=== PATIENT | female | born 1970 | race Caucasian/White ===

== ENCOUNTER 2017-09-07 19:50 | Inpatient (IN) | payer MEDICAID, OTHER ==
[2017-09-07] MEDS: SOD CHLORIDE 0.9% 1,000 ML IV (20:49)
[2017-09-07] MEDS: ONDANSETRON 4 MG INJ IV (20:49)
[2017-09-07] MEDS: morphine 4 MG/ML VIAL IV (20:49)
[2017-09-07 22:48] LABS: WHITE BLOOD COUNT 2.1 10^3/ul (4.8-10.8)
[2017-09-07 22:48] LABS: ABNORMAL IP MESSAGE 1; HEMATOCRIT 32.5 % (37.0-47.0); HEMOGLOBIN 10.3 g/dl (12.0-16.0); MEAN CORPUSCULAR HEMOGLOBIN 25.5 pg (29.0-33.0); MEAN CORPUSCULAR HGB CONC 31.7 g/dl (32.0-37.0); MEAN CORPUSCULAR VOLUME 80.4 fl (82.0-101.0); RED BLOOD COUNT 4.04 10^6/ul (4.20-5.40); RED CELL DISTRIBUTION WIDTH 14.6 % (11.5-14.5)
[2017-09-07 22:52] LABS: PLATELET COUNT 39 10^3/UL (140-415); POSITIVE DIFF @See below
[2017-09-07 22:53] LABS: ADD MAN DIFF? YES
[2017-09-07 23:05] LABS: ALANINE AMINOTRANSFERASE 18 IU/L (13-69); ALBUMIN 3.1 g/dl (3.3-4.9); ALBUMIN/GLOBULIN RATIO 1.24; ALKALINE PHOSPHATASE 62 IU/L (42-121); ANION GAP 11 (8-16); ASPARTATE AMINO TRANSFERASE 13 IU/L (15-46); BILIRUBIN,INDIRECT 0.5 mg/dl (0-1.1); BILIRUBIN,TOTAL 0.5 mg/dl (0.2-1.3); BLOOD UREA NITROGEN 20 mg/dl (7-20); CALCIUM 8.9 mg/dl (8.4-10.2); CARBON DIOXIDE 27 mmol/L (21-31); CHLORIDE 106 mmol/L (97-110); CREATININE 0.76 mg/dl (0.44-1.00); GLUCOSE 112 mg/dl (70-220); POTASSIUM 3.7 mmol/L (3.5-5.1); SODIUM 140 mmol/L (135-144); TOTAL PROTEIN 5.6 g/dl (6.1-8.1)
[2017-09-07 23:16] LABS: ANISOCYTOSIS 3+ (0-0); BAND NEUTROPHILS % (M) 2 % (0-4); GIANT THROMBO% (M) 2 % (0-0); LYMPHOCYTES #M 0.1 10^3/ul (0.8-2.9); LYMPHOCYTES % (M) 7 % (15-51); MICROCYTOSIS 3+ (0-0); MONOCYTE #M 0.2 10^3/ul (0.3-0.9); MONOCYTES % (M) 10 % (0-11); OVALOCYTES 1+ (0-0); PLATELET ESTIMATE SIG DECREASED; POIKILOCYTOSIS 2+ (0-0); SEG NEUT #M 1.7 10^3/ul (1.6-7.5); SEGMENTED NEUTROPHILS (M) % 81 % (39-77); SMUDGE%M 3 % (0-0)
[2017-09-07 23:17] LABS: PATH REVIEW? YES-PATH TO CONFIRM
[2017-09-08] MEDS ORDERED: NACL 0.9% 3 ML SYG IV (00:30)
[2017-09-08] MEDS ORDERED: ACETAMINOPHEN 325 MG TAB PO (00:30)
[2017-09-08] MEDS ORDERED: ONDANSETRON 4 MG INJ IV (00:30)
[2017-09-08] MEDS: metroNIDAZOLE 500 MG/NS (PMX) 100 ML IVPB ×5 (00:30→18:03)
[2017-09-08] MEDS: CIPROFLOXACIN 400MG/D5W 200 ML IVPB ×3 (00:39→23:44)
[2017-09-08] MEDS: SOD CHLORIDE 0.9% 1,000 ML IV ×3 (01:01→20:20)
[2017-09-08 01:41] LABS: LACTIC ACID 0.9 mmol/L (0.5-2.0)
[2017-09-08 05:16] LABS: HAAIG REFLEX REFLEX FILED
[2017-09-08 05:18] LABS: WHITE BLOOD COUNT 1.2 10^3/ul (4.8-10.8)
[2017-09-08 05:18] LABS: ABNORMAL IP MESSAGE 1; ADD MAN DIFF? YES; HEMATOCRIT 30.6 % (37.0-47.0); HEMOGLOBIN 9.5 g/dl (12.0-16.0); MEAN CORPUSCULAR HEMOGLOBIN 25.6 pg (29.0-33.0); MEAN CORPUSCULAR VOLUME 82.5 fl (82.0-101.0); PLATELET COUNT 38 10^3/UL (140-415); POSITIVE DIFF @See below; RED BLOOD COUNT 3.71 10^6/ul (4.20-5.40); RED CELL DISTRIBUTION WIDTH 14.6 % (11.5-14.5)
[2017-09-08 05:24] LABS: ADD UMIC YES; UR ASCORBIC ACID NEGATIVE (NEGATIVE); UR BACTERIA FEW /HPF (NONE SEEN); UR BILIRUBIN (Dip) NEGATIVE (NEGATIVE); UR BLOOD (Dip) NEGATIVE (NEGATIVE); UR CLARITY SLIGHTLY CLOUDY (CLEAR); UR COLOR YELLOW (YELLOW); UR GLUCOSE (Dip) NEGATIVE (NEGATIVE); UR KETONES (Dip) NEGATIVE (NEGATIVE); UR LEUKOCYTE ESTERASE (Dip) NEGATIVE Leu/ul (NEGATIVE); UR MUCUS MODERATE /HPF (NONE SEEN); UR NITRITE (Dip) NEGATIVE (NEGATIVE); UR RBC 1 /HPF (0-5); UR SPECIFIC GRAVITY (Dip) 1.021 (1.003-1.030); UR SQUAMOUS EPITHELIAL CELL FEW /HPF (FEW); UR TOTAL PROTEIN (Dip) 2+ mg/dl (NEGATIVE); UR UROBILINOGEN (Dip) NEGATIVE (NEGATIVE); UR WBC 3 /HPF (0-5)
[2017-09-08 05:27] LABS: HEMOGLOBIN A1C 5.4 % (0-5.9)
[2017-09-08 05:43] LABS: ALANINE AMINOTRANSFERASE 23 IU/L (13-69); ALBUMIN 2.7 g/dl (3.3-4.9); ALBUMIN/GLOBULIN RATIO 1.17; ALKALINE PHOSPHATASE 49 IU/L (42-121); ANION GAP 11 (8-16); ASPARTATE AMINO TRANSFERASE 13 IU/L (15-46); BILIRUBIN,INDIRECT 0.6 mg/dl (0-1.1); BILIRUBIN,TOTAL 0.6 mg/dl (0.2-1.3); BLOOD UREA NITROGEN 18 mg/dl (7-20); CALCIUM 8.4 mg/dl (8.4-10.2); CARBON DIOXIDE 27 mmol/L (21-31); CHLORIDE 108 mmol/L (97-110); CHOL/HDL RATIO 2.5 RATIO; CHOLESTEROL 74 mg/dl (100-200); CREATININE 0.72 mg/dl (0.44-1.00); GLUCOSE 119 mg/dl (70-220); HDL CHOLESTEROL 29 mg/dl (37-92); LDL CHOLESTEROL,CALCULATED 20 mg/dl; MAGNESIUM 1.8 mg/dl (1.7-2.5); POTASSIUM 3.6 mmol/L (3.5-5.1); SODIUM 142 mmol/L (135-144); TRIGLYCERIDES 123 mg/dl (0-149)
[2017-09-08 06:11] LABS: ANISOCYTOSIS 2+ (0-0); EOSINOPHILS % (M) 3 % (0-7); GIANT THROMBO% (M) 4 % (0-0); LYMPHOCYTES #M 0.1 10^3/ul (0.8-2.9); LYMPHOCYTES % (M) 12 % (15-51); MICROCYTOSIS 2+ (0-0); MONOCYTES % (M) 2 % (0-11); PLATELET ESTIMATE DECREASED; POIKILOCYTOSIS 2+ (0-0); POLYCHROMASIA 2+ (0-0); SEGMENTED NEUTROPHILS (M) % 83 % (39-77); SMUDGE%M 6 % (0-0)
[2017-09-08 06:13] LABS: HEPATITIS B SURFACE ANTIGEN NEGATIVE (NEGATIVE)
[2017-09-08 06:30] LABS: HEPATITIS B CORE ANTIBODY NEGATIVE (NEGATIVE)
[2017-09-08 06:36] LABS: HEPATITIS C VIRAL ANTIBODY REACTIVE (NEGATIVE); HIV 1&2 ANTIBODY NEGATIVE (NEGATIVE)
[2017-09-08] MEDS: HYDROmorphONE 0.5 MG/0.5 ML SYG IV ×3 (06:43→23:52)
[2017-09-08] MEDS ORDERED: VANCOMYCIN IV PER PHARMACY XX (08:00)
[2017-09-08] MEDS: LIDOCAINE 1% (MPF) 5 ML VIAL SC (14:00)
[2017-09-08] MEDS ORDERED: LIDOCAINE 1% (MPF) 5 ML VIAL SC (16:30)
[2017-09-08] MEDS: VANCOMYCIN 2 GM in SOD CHLORIDE 0.9% 500 ML IVPB (19:07)
[2017-09-08] MEDS ORDERED: VANCOMYCIN 1.5 GM in SOD CHLORIDE 0.9% 250 ML IVPB (21:00)
[2017-09-08] MEDS: CEPASTAT LOZENGE MT (23:52)
[2017-09-09] MEDS: metroNIDAZOLE 500 MG/NS (PMX) 100 ML IVPB ×4 (00:51→19:05)
[2017-09-09 06:14] LABS: ALANINE AMINOTRANSFERASE 26 IU/L (13-69); ALBUMIN 2.5 g/dl (3.3-4.9); ALBUMIN/GLOBULIN RATIO 1.08; ALKALINE PHOSPHATASE 46 IU/L (42-121); ANION GAP 11 (8-16); ASPARTATE AMINO TRANSFERASE 14 IU/L (15-46); BILIRUBIN,INDIRECT 0.3 mg/dl (0-1.1); BILIRUBIN,TOTAL 0.3 mg/dl (0.2-1.3); BLOOD UREA NITROGEN 14 mg/dl (7-20); CALCIUM 8.1 mg/dl (8.4-10.2); CARBON DIOXIDE 28 mmol/L (21-31); CHLORIDE 109 mmol/L (97-110); GLUCOSE 122 mg/dl (70-220); POTASSIUM 3.6 mmol/L (3.5-5.1); SODIUM 144 mmol/L (135-144); TOTAL PROTEIN 4.8 g/dl (6.1-8.1)
[2017-09-09] MEDS: SOD CHLORIDE 0.9% 1,000 ML IV ×2 (06:20→17:31)
[2017-09-09] MEDS: VANCOMYCIN 1.5 GM in SOD CHLORIDE 0.9% 250 ML IVPB ×2 (08:04→20:44)
[2017-09-09 10:07] LABS: WHITE BLOOD COUNT 0.6 10^3/ul (4.8-10.8)
[2017-09-09 10:08] LABS: HEMATOCRIT 27.8 % (37.0-47.0); HEMOGLOBIN 8.5 g/dl (12.0-16.0); MEAN CORPUSCULAR HEMOGLOBIN 25.4 pg (29.0-33.0); MEAN CORPUSCULAR HGB CONC 30.6 g/dl (32.0-37.0); RED BLOOD COUNT 3.35 10^6/ul (4.20-5.40); RED CELL DISTRIBUTION WIDTH 14.7 % (11.5-14.5)
[2017-09-09 10:11] LABS: PLATELET COUNT 25 10^3/UL (140-415)
[2017-09-09 10:12] LABS: ADD MAN DIFF? YES; MEAN PLATELET VOLUME 12.6 fl (7.4-10.4)
[2017-09-09] MEDS: CIPROFLOXACIN 400MG/D5W 200 ML IVPB ×2 (11:19→23:59)
[2017-09-09] MEDS: CEPASTAT LOZENGE MT ×2 (11:26→20:53)
[2017-09-09] MEDS: HYDROmorphONE 0.5 MG/0.5 ML SYG IV ×3 (11:27→20:44)
[2017-09-09 11:28] LABS: ANISOCYTOSIS 2+ (0-0); BAND NEUTROPHILS % (M) 7 % (0-4); EOSINOPHILS % (M) 2 % (0-7); GIANT THROMBO% (M) 18 % (0-0); LYMPHOCYTES #M 0.1 10^3/ul (0.8-2.9); LYMPHOCYTES % (M) 22 % (15-51); MICROCYTOSIS 2+ (0-0); MONOCYTES % (M) 7 % (0-11); PLATELET ESTIMATE SIG DECREASED; POLYCHROMASIA 1+ (0-0); REACTIVE LYMPHOCYTES% (M) 2 % (0-0); SEG NEUT #M 0.4 10^3/ul (1.6-7.5); SEGMENTED NEUTROPHILS (M) % 61 % (39-77); SMUDGE%M 13 % (0-0)
[2017-09-09 13:41] LABS: PROTIME 17.4 Sec (11.9-14.9); PT RATIO 1.4
[2017-09-09 13:42] LABS: PARTIAL THROMBOPLASTIN TIME 36.4 Sec (25.0-35.0)
[2017-09-10] MEDS: metroNIDAZOLE 500 MG/NS (PMX) 100 ML IVPB ×4 (01:03→18:36)
[2017-09-10] MEDS: HYDROmorphONE 0.5 MG/0.5 ML SYG IV ×6 (01:03→22:07)
[2017-09-10] MEDS: CEPASTAT LOZENGE MT ×2 (01:07→09:25)
[2017-09-10] MEDS: SOD CHLORIDE 0.9% 1,000 ML IV ×2 (02:20→12:20)
[2017-09-10 07:29] LABS: VANCOMYCIN,TROUGH 9.1 ug/ml (10.0-20.0)
[2017-09-10] MEDS: CIPROFLOXACIN 400MG/D5W 200 ML IVPB ×2 (09:18→20:12)
[2017-09-10] MEDS: VANCOMYCIN 1.5 GM in SOD CHLORIDE 0.9% 250 ML IVPB (09:18)
[2017-09-10 16:36] LABS: ABNORMAL IP MESSAGE 1; HEMATOCRIT 30.5 % (37.0-47.0); HEMOGLOBIN 9.4 g/dl (12.0-16.0); MEAN CORPUSCULAR HEMOGLOBIN 25.5 pg (29.0-33.0); MEAN CORPUSCULAR HGB CONC 30.8 g/dl (32.0-37.0); MEAN CORPUSCULAR VOLUME 82.9 fl (82.0-101.0); MEAN PLATELET VOLUME 14.5 fl (7.4-10.4); PLATELET COUNT 33 10^3/UL (140-415); RED BLOOD COUNT 3.68 10^6/ul (4.20-5.40); RED CELL DISTRIBUTION WIDTH 14.7 % (11.5-14.5)
[2017-09-10 16:57] LABS: ANION GAP 13 (8-16); BLOOD UREA NITROGEN 13 mg/dl (7-20); CALCIUM 8.4 mg/dl (8.4-10.2); CARBON DIOXIDE 28 mmol/L (21-31); CHLORIDE 108 mmol/L (97-110); CREATININE 0.61 mg/dl (0.44-1.00); GLUCOSE 130 mg/dl (70-220); POTASSIUM 3.9 mmol/L (3.5-5.1); SODIUM 145 mmol/L (135-144)
[2017-09-10 17:23] LABS: ADD MAN DIFF? YES; POSITIVE DIFF @See below
[2017-09-10 18:09] LABS: ANISOCYTOSIS 2+ (0-0); EOSINOPHILS % (M) 3 % (0-7); GIANT THROMBO% (M) 4 % (0-0); LYMPHOCYTES #M 0.1 10^3/ul (0.8-2.9); LYMPHOCYTES % (M) 19 % (15-51); MICROCYTOSIS 2+ (0-0); MONOCYTES % (M) 5 % (0-11); PLATELET ESTIMATE SIG DECREASED; POIKILOCYTOSIS 2+ (0-0); SEGMENTED NEUTROPHILS (M) % 73 % (39-77); SMUDGE%M 1 % (0-0)
[2017-09-10] MEDS ORDERED: VANCOMYCIN 1.75 GM in SOD CHLORIDE 0.9% 500 ML IVPB (20:00)
[2017-09-10 21:29] LABS: TYPE AND SCREEN 1 1
[2017-09-11] MEDS: metroNIDAZOLE 500 MG/NS (PMX) 100 ML IVPB ×4 (00:44→18:55)
[2017-09-11] MEDS: HYDROmorphONE 0.5 MG/0.5 ML SYG IV ×6 (02:29→21:57)
[2017-09-11 06:34] LABS: ABNORMAL IP MESSAGE 1; HEMATOCRIT 29.8 % (37.0-47.0); MEAN CORPUSCULAR HEMOGLOBIN 25.2 pg (29.0-33.0); MEAN CORPUSCULAR HGB CONC 30.2 g/dl (32.0-37.0); MEAN CORPUSCULAR VOLUME 83.5 fl (82.0-101.0); MEAN PLATELET VOLUME 12.3 fl (7.4-10.4); RED BLOOD COUNT 3.57 10^6/ul (4.20-5.40); RED CELL DISTRIBUTION WIDTH 14.8 % (11.5-14.5)
[2017-09-11 06:43] LABS: ADD MAN DIFF? YES; PLATELET COUNT 27 10^3/UL (140-415); POSITIVE DIFF @See below
[2017-09-11 09:19] LABS: ANISOCYTOSIS 3+ (0-0); BAND NEUTROPHILS % (M) 6 % (0-4); EOSINOPHILS % (M) 2 % (0-7); HYPOCHROMASIA 1+ (0-0); LYMPHOCYTES #M 0.1 10^3/ul (0.8-2.9); LYMPHOCYTES % (M) 13 % (15-51); MICROCYTOSIS 3+ (0-0); MONOCYTES % (M) 4 % (0-11); PLATELET ESTIMATE SIG DECREASED; POIKILOCYTOSIS 2+ (0-0); POLYCHROMASIA 2+ (0-0); SEG NEUT #M 0.8 10^3/ul (1.6-7.5); SEGMENTED NEUTROPHILS (M) % 75 % (39-77)
[2017-09-11] MEDS: CIPROFLOXACIN 400MG/D5W 200 ML IVPB ×2 (09:33→21:31)
[2017-09-11 14:54] LABS: PLATELET COUNT 32 10^3/UL (140-415)
[2017-09-11] MEDS: BARIUM SULF 2% 450 ML BTL (BERRY SMOOTHIE) PO (17:30)
[2017-09-12] MEDS: metroNIDAZOLE 500 MG/NS (PMX) 100 ML IVPB ×5 (01:42→23:26)
[2017-09-12] MEDS: HYDROmorphONE 0.5 MG/0.5 ML SYG IV ×6 (01:42→22:24)
[2017-09-12 05:22] LABS: WHITE BLOOD COUNT 0.9 10^3/ul (4.8-10.8)
[2017-09-12 05:22] LABS: ABNORMAL IP MESSAGE 1; HEMATOCRIT 29.3 % (37.0-47.0); MEAN CORPUSCULAR HEMOGLOBIN 25.4 pg (29.0-33.0); MEAN CORPUSCULAR HGB CONC 30.7 g/dl (32.0-37.0); MEAN CORPUSCULAR VOLUME 82.8 fl (82.0-101.0); MEAN PLATELET VOLUME 13.2 fl (7.4-10.4); PLATELET COUNT 32 10^3/UL (140-415); RED BLOOD COUNT 3.54 10^6/ul (4.20-5.40); RED CELL DISTRIBUTION WIDTH 15.1 % (11.5-14.5)
[2017-09-12 05:31] LABS: ADD MAN DIFF? YES; POSITIVE DIFF @See below
[2017-09-12 05:45] LABS: ANION GAP 12 (8-16); BLOOD UREA NITROGEN 16 mg/dl (7-20); CALCIUM 8.8 mg/dl (8.4-10.2); CARBON DIOXIDE 28 mmol/L (21-31); CHLORIDE 109 mmol/L (97-110); CREATININE 0.59 mg/dl (0.44-1.00); GLUCOSE 172 mg/dl (70-220); MAGNESIUM 1.6 mg/dl (1.7-2.5); PHOSPHORUS 3.5 mg/dl (2.5-4.9); SODIUM 145 mmol/L (135-144)
[2017-09-12] MEDS: CEPASTAT LOZENGE MT ×3 (05:52→22:29)
[2017-09-12 08:08] LABS: TYPE AND SCREEN 1 1
[2017-09-12 09:34] LABS: ANISOCYTOSIS 3+ (0-0); BAND NEUTROPHILS % (M) 6 % (0-4); EOSINOPHILS % (M) 3 % (0-7); GIANT THROMBO% (M) 4 % (0-0); LYMPHOCYTES #M 0.1 10^3/ul (0.8-2.9); LYMPHOCYTES % (M) 14 % (15-51); MICROCYTOSIS 2+ (0-0); MONOCYTES % (M) 9 % (0-11); PLATELET ESTIMATE SIG DECREASED; POIKILOCYTOSIS 2+ (0-0); POLYCHROMASIA 3+ (0-0); SEG NEUT #M 0.6 10^3/ul (1.6-7.5); SEGMENTED NEUTROPHILS (M) % 67 % (39-77)
[2017-09-12] MEDS: CIPROFLOXACIN 400MG/D5W 200 ML IVPB ×2 (10:23→20:27)
[2017-09-13] MEDS: HYDROmorphONE 0.5 MG/0.5 ML SYG IV ×2 (03:32→08:50)
[2017-09-13] MEDS: CEPASTAT LOZENGE MT ×3 (03:32→19:47)
[2017-09-13] MEDS: metroNIDAZOLE 500 MG/NS (PMX) 100 ML IVPB ×3 (05:32→17:56)
[2017-09-13] MEDS: CIPROFLOXACIN 400MG/D5W 200 ML IVPB (08:49)
[2017-09-13] MEDS: METHADONE 10 MG TAB PO (13:16)
== END 2017-09-13 19:55 | disposition home or self-care (01) | DRG 444 ==
LOC: E/R 19:50 → MS1 09-08 00:18
PROVIDERS: Family Medicine
PROC: 02HV33Z Insertion of Infusion Device into Superior Vena Cava, Percutaneous Approach (ICD-10-PCS; 2017-09-08)
PROC: 30233R1 Transfusion of Nonautologous Platelets into Peripheral Vein, Percutaneous Approach (ICD-10-PCS; principal; 2017-09-10)
DX: K81.0 Acute cholecystitis (principal); K65.2 Spontaneous bacterial peritonitis; L03.116 Cellulitis of left lower limb; D61.818 Other pancytopenia; Z68.45 Body mass index [BMI] 70 or greater, adult; L03.115 Cellulitis of right lower limb; F11.20 Opioid dependence, uncomplicated; J45.901 Unspecified asthma with (acute) exacerbation; I10 Essential (primary) hypertension; K74.60 Unspecified cirrhosis of liver; Z86.718 Personal history of other venous thrombosis and embolism; B19.20 Unspecified viral hepatitis C without hepatic coma; E66.01 Morbid (severe) obesity due to excess calories; Z76.5 Malingerer [conscious simulation]; G47.30 Sleep apnea, unspecified; Z59.0 Homelessness; I89.0 Lymphedema, not elsewhere classified
CPT/HCPCS: 36430; 36569; 71045; 76705; 76937; 80048; 80053; 80061; 80202; 81001; 81025; 83036; 83605; 83735; 84100; 84443; 85025; 85049; 85610; 85730; 86644; 86703; 86704; 86709; 86803; 86850; 86900; 86901; 86945; 87340; 87522; 93970; 96374; 96375; 97163; 99285-25